=== PATIENT | female | born 1965 | race Caucasian/White ===

== ENCOUNTER 2019-09-02 09:39 | Inpatient (IN) | payer MEDICAID ==
[~2019-09-02] VITALS: Ht 157.5 cm; Wt 64.9 kg
[~2019-09-02 09:39] MED LIST: ACET325T33 PO; AZIT250T13 PO; GUAI120S25 PO
[2019-09-02] MEDS ORDERED: VANCOMYCIN 1 GM (PMX) 250 ML IVPB STA (09:49)
[2019-09-02] MEDS ORDERED: SODIUM CHLORIDE 0.9% 1L BAG IV* STA (09:49)
[2019-09-02] MEDS ORDERED: ACETAMINOPHEN 325 MG TAB PO STA (09:49)
[2019-09-02] MEDS ORDERED: PIPER-TAZO 3.375 GM IV (PMX) 100 ML IVPB STA (09:49)
[2019-09-02] MEDS ORDERED: IBUPROFEN 800 MG TAB PO ONE (10:00)
[2019-09-02] MEDS ORDERED: IPRATROPIUM (NEB) 0.5 MG/2.5 ML AMP NEB STA (10:31)
[2019-09-02] MEDS ORDERED: ALBUTEROL 0.5% (NEB) 2.5 MG/0.5 ML AMP NEB STA (10:31)
[2019-09-02] MEDS ORDERED: IOHEXOL 100 ML ONE (11:31)
[2019-09-02] MEDS ORDERED: SOD CHLORIDE 0.9% 100 ML ONE (11:31)
[2019-09-02] MEDS ORDERED: ASPIRIN (EC) 325 MG TAB PO ONE (13:30)
[2019-09-02] MEDS ORDERED: NACL 0.9% 3 ML SYG IV SCH (14:00)
[2019-09-02] MEDS ORDERED: DOCUSATE SODIUM 100 MG CAP PO PRN (14:00)
[2019-09-02] MEDS ORDERED: ZOLPIDEM 5 MG TAB PO PRN (14:00)
[2019-09-02] MEDS ORDERED: morphine 2 MG INJ IV PRN (14:00)
[2019-09-02] MEDS: CEFTRIAXONE 1 GM/50 ML (PMX) 50 ML IVPB SCH (15:25)
[2019-09-02] MEDS: SOD CHLORIDE 0.9% 1,000 ML IV SCH ×2 (15:25→23:14)
[2019-09-02] MEDS: AZITHROMYCIN 500MG/NS (PMX) 250 ML IVPB SCH (16:35)
[2019-09-02 17:26] VITALS: Ht 157.5 cm; Wt 64.9 kg
[2019-09-02 17:47] VITALS: BP 99/56; PULSE 94; RESP 16
[2019-09-02 20:00] VITALS: BP 120/61; PULSE 99; RESP 18
[2019-09-02] MEDS: ACETAMINOPHEN 325 MG TAB PO PRN (23:14)
[2019-09-03 00:05] VITALS: BP 101/52; PULSE 92; RESP 18
[2019-09-03 04:15] VITALS: BP 124/68; PULSE 77; RESP 18
[2019-09-03] MEDS: ACETAMINOPHEN 325 MG TAB PO PRN (05:23)
[2019-09-03] MEDS: HYDROCODONE/APAP (5/325) TAB PO PRN (07:33)
[2019-09-03 07:38] VITALS: BP 128/61; PULSE 79; RESP 24
[2019-09-03] MEDS: SOD CHLORIDE 0.9% 1,000 ML IV SCH (09:12)
[2019-09-03] MEDS ORDERED: FLU VACC QS 2019-20 (6MOS UP) 0.5 ML SYG IM* ONE (11:00)
[2019-09-03 11:37] VITALS: BP 125/68; PULSE 67; RESP 24
[2019-09-03] MEDS: CEFTRIAXONE 1 GM/50 ML (PMX) 50 ML IVPB SCH (13:02)
[2019-09-03] MEDS: AZITHROMYCIN 500MG/NS (PMX) 250 ML IVPB SCH (14:03)
[2019-09-03] MEDS: ONDANSETRON 4 MG INJ IV PRN (14:43)
[2019-09-03 15:46] VITALS: BP 130/77; PULSE 77; RESP 24
[2019-09-03] MEDS ORDERED: GUAIFENESIN/DM 5ML CUP PO PRN (19:30)
[2019-09-03] MEDS ORDERED: ALBUTEROL 0.083% (NEB) 2.5 MG/3 ML AMP HHN PRN (19:30)
[2019-09-03 20:00] VITALS: BP 169/80; PULSE 85; RESP 20
[2019-09-04] VITALS: BP 157/69; PULSE 89; RESP 20
[2019-09-04] MEDS: HYDROCODONE/APAP (5/325) TAB PO PRN (00:20)
[2019-09-04 04:00] VITALS: BP 136/68; PULSE 85; RESP 19
[2019-09-04 07:39] VITALS: BP 108/57; PULSE 70; RESP 20
[2019-09-04 11:43] VITALS: BP 128/63; PULSE 73; RESP 20
[2019-09-04] MEDS: ONDANSETRON 4 MG INJ IV PRN (13:11)
[2019-09-04] MEDS: AZITHROMYCIN 500MG/NS (PMX) 250 ML IVPB SCH (13:12)
[2019-09-04] MEDS ORDERED: CEFTRIAXONE 1 GM/50 ML (PMX) 50 ML IVPB SCH (14:00)
[2019-09-04 15:42] VITALS: BP 128/64; PULSE 71; RESP 20
== END 2019-09-04 17:40 | disposition home or self-care (01) | DRG 872 ==
LOC: E/R 09:39 → 6WM 12:36
PROVIDERS: ADMIT Internal Medicine; ATTEND Internal Medicine
DX: A41.9 Sepsis, unspecified organism (principal); J20.9 Acute bronchitis, unspecified; R07.9 Chest pain, unspecified; Z85.3 Personal history of malignant neoplasm of breast; Z90.11 Acquired absence of right breast and nipple
CPT/HCPCS: 36415; 71045; 71275; 80048; 80053; 81001; 82150; 83036; 83605; 83690; 83735; 83880; 84100; 84443; 84484; 85025; 85610; 85730; 87086; 87400; 90686; 93005; 94644; 96374; 96375; 97161; J0456; J0696; J2405; J2543; J3370; J7030; Q9967